=== PATIENT | male | born 1955 | race Caucasian/White ===

== ENCOUNTER 2016-11-26 10:03 | Inpatient (IN) ==
[2016-11-26] MEDS ORDERED: Potassium Chloride Elixir 20 MEQ/15 ML UDC PO SCH (11:30)
[2016-11-26 12:36] LABS: Prothrombin Time 10.7 Seconds (9.4-12.1)
[2016-11-26 12:39] LABS: Activated Partial Thrombo Time 28.4 Seconds (26.0-36.0)
[2016-11-26 12:44] LABS: BUN/Creatinine Ratio 5 (6-26); Blood Urea Nitrogen 3 mg/dL (8-26); Calcium 8.6 mg/dL (8.6-10.8); Carbon Dioxide 20 mEq/L (19-29); Chloride 99 mEq/L (98-109); Glucose 96 mg/dL (70-99); Osmolality,Calculated 266 (280-300); Potassium 3.6 mEq/L (3.5-4.5); Sodium 130 mEq/L (136-145); eGFR For African Americans > 60 (> 60); eGFR For Non-African Americans > 60 (> 60)
[2016-11-26] MEDS: traMADol 50 MG TABLET PO PRN ×2 (13:13→20:36)
--- NOTE | 2016-11-26 14:10 | Vascular/[facility] Progress Note ---
Date of Encounter: 11/26/16 Time of Encounter: 14:07 - Assessment and plan (1) Hyponatremia Current Visit: Yes Status: Acute Hyponatremia thought secondary to chronic losartan use. Asymptomatic. (2) PAD (peripheral artery disease) Current Visit: Yes Status: Chronic Recurrent occlusion of right lower extremity femoral-popliteal bypass graft. Plan thrombectomy of right lower extremity bypass graft tomorrow. (3) HTN (hypertension) Current Visit: Yes Status: Chronic Patient has been under medical therapy for hypertension for approximately 5 years. Consultation with internal medicine will be requested to review his medical therapy and to suggest alternative medications. Qualifiers: Hypertension type: essential hypertension Qualified Code(s): I10 - Essential (primary) hypertension - Subjective Interval history: Chloé Corbin is a 61-year-old white male who was admitted today in preparation for surgery tomorrow. The patient is a very long incompetent greater history in regards to his lower extremity vascular disease. He has had previous endovascular interventions as well as surgical interventions. The left side has been treated through an endovascular approach only. The right side as had bypass grafts using both vein and then synthetics as well as revisions and thrombectomies. The patient presented to my office last week with bilateral lower extremity symptoms over a number of months. An ankle-brachial index was measured at 0 bilaterally. He was then taken to the interim suite Saturday on an urgent basis for angiography. As part of his preoperative laboratory values he was found to have marked hyponatremia of less than 120 and hypokalemia of a potassium of 2.8. The patient was given both intravenous and oral potassium supplement prior to his angiogram. His electrolytes were repeated and his potassium had increased to 3.2 but his serum sodium remained low at approximately 114 values asymptomatic. He had no symptoms that would suggest typical findings of hyponatremia with cerebrovascular or neurologic events. His losartan was anticipated to be part of the problem so that was discontinued on Saturday. He is admitted today for a recheck of his electrolytes and begin intravenous normal saline. The electrolytes have been rechecked and his serum sodium is 1:30 with a potassium of 3.6 chloride of 99 and a CO2 of 20. A consultation from internal medicine be requested in regards to recommendations for long-term and it hypertensive therapy. Patient will be treated with IV normal saline overnight. Patient will go to surgery tomorrow for right lower extremity bypass graft thrombectomy. Vital Signs, Last 4 Hours Temp Pulse Resp BP Pulse Ox 11/26/16 10:42 62 11/26/16 10:30 97.7 F 79 18 163/83 100 - Physical Examination General: Present: Conversant, No Apparent Distress HEENT: Present: Atraumatic, Normocephaly Neck: Absent: JVD Cardiac: Present: Reg Rate and Rhythm, Normal S1 and S2 Lungs: Present: Normal Breath Sounds Neuro: Present: Alert and responsive, No focal deficits noted, Cranial nerves grossly intact, Motor nerves grossly intact, Sensory nerves grossly intact Vascular: Present: Pulse, absent (The right ankle pulses are not palpable but I am able to identify a Doppler signal today.), Pulse, normal (Normal dorsalis pedis and posterior tibial pulse on the left.), Color/Temperature (The left foot is warm and pink. The right foot has capillary refill but is diminished in color and temperature as compared to the left.) Abdomen: Present: Soft, Non-tender Skin: Present: No rashes noted on visualized skin Results 11/26/16 12:18 Lab Results, Last 24 hours 11/26/16 11/26/16 12:18 12:18 INR 1.0 APTT 28.4 Sodium 130 L D Potassium 3.6 Chloride 99 D Carbon Dioxide 20 BUN 3 L Creatinine 0.65 L Glucose 96 Calcium 8.6 Consult Discharge Plan - Plan Referrals: Marissa Monroe CNP [Primary Care Provider] - 12/06/16 1:00 pm Bro Lozano MD [Partnered Physician] -
[2016-11-26] MEDS: 0.9 % Sodium Chloride 1,000 ML IVC SCH (14:13)
[2016-11-26] MEDS ORDERED: *HR* LORazepam 2 MG/ML VIAL IVP PRN (17:43)
--- NOTE | 2016-11-26 18:05 | Internal Medicine Consult Note ---
Date of Encounter: 11/26/16 Time of Encounter: 18:00 Internal Medicine - CN: HPI - Data of Consult Patient: new to practice Consult date: 11/26/16 Requesting Physician: Bro Lozano MD - Consult Narrative Reason for consult: electrolyte abnormalities History of present illness: Mr. Garcia is a 61 year old male with past medical history significant for essential hypertension and peripheral arterial disease who was electively admitted to the hospital for right femoral thrombectomy. He has not been having intermittent claudication 4 weeks and 3 days ago he has had an angioplasty with stent placement into the left leg. He has tolerated the procedure well. It was noted at that Saturday his sodium was 114 and potassium 2.8. On review of his medication he was taking losartan and HCTZ. The patient says that he has been taking the same blood pressure medications for at least 4 years. These medications were stopped and he was given IV and oral potassium replacement. His electrolytes have improved however he still has hyponatremia today and potassium has significantly improved. We were consulted for management of the patient's hypertension and electrolyte abnormalities. A 10 point review of systems was negative except as above. Family history reviewed and found to be noncontributory. Social history: Patient quit smoking 2 years ago, drinks 6-8 beers a day, denies drug use. Past Med Surg Social Fam HX - Past Medical History Medical history: hypertension, peripheral artery disease Psychiatric history: no psych history - Past Surgical History Surgical History: angioplasty/stent - Social History Smoking Status: Former smoker Smokeless Tobacco Status: No Alcohol use: heavy, recent Drug use: none - Family History Mother History Unknown: Yes Internal Medicine - CN: Meds Clopidogrel Bisulfate [Plavix] 75 mg PO DAILY #30 tablet 09/02/15 [Rx] Losartan/HCTZ [Hyzaar 50-12.5 Tablet] 1 tab PO BID 01/19/16 [History] Tramadol HCl [Ultram] 50 mg PO Q6H PRN 11/23/16 [History] Allergies No Known Allergies Allergy (Verified 11/23/16 08:06) Internal Medicine - CN: Exam - Constitutional Vitals: Temp Pulse Resp BP Pulse Ox 97.9 F 72 18 128/78 98 11/26/16 16:30 11/26/16 16:30 11/26/16 16:30 11/26/16 16:30 11/26/16 16:30 General appearance IM: Present: A&O X 3 - Eye Eye exam: Present: EOMI, PERRL - Respiratory Respiratory exam: Present: CTAB. Absent: wheezes, tachypnea - Cardiovascular Cardiovascular exam IM: Present: RRR, +S1, +S2. Absent: systolic murmur - GI/Abdominal GI/Abdominal exam IM: Absent: hernia, mass, splenomegaly, tenderness - Extremities Exam Extremities exam IM: Present: warm. Absent: joint swelling, pedal edema, tenderness - Skin Skin exam IM: Absent: abrasion, cyanosis, erythema Internal Medicine - CN: Reslt - Labs CBC & Chem 7: 11/26/16 12:18 Labs: BMP 11/26/16 12:18 Sodium 130 L D Potassium 3.6 Chloride 99 D Carbon Dioxide 20 BUN 3 L Creatinine 0.65 L Glucose 96 Calcium 8.6 Per chart review patient's sodium was 117 on 11/22/2015 and it came down to 114 on 11/23/2015. His potassium was as low as 2.8. - ABG Interpretation ABG results: PT/INR, D-dimer PT 10.7 Seconds (9.4-12.1) 11/26/16 12:18 - Assessment and Plan (1) Alcohol abuse Current Visit: Yes Status: Acute Assessment and plan: We will start alcohol withdrawal protocol. We will treat the patient intravenous multivitamins. (2) Hyponatremia Current Visit: Yes Status: Acute Assessment and plan: Likely secondary to dehydration due to treatment with diuretics H as HCTZ for hypertension. Likely complicated by decreased oral intake secondary to surgery. The patient denies nausea and vomiting and dehydration. I agree with treating patient with IV normal saline. Hold HCTZ. Can restart losartan postoperatively. Monitor electrolytes closely. Losartan is not known to cause hyponatremia and is usually associated with hyperkalemia and not hypokalemia and therefore should be safe in this patient. Hyponatremia on this case could also be related to beer drinkers hyponatremia and therefore I will request a social service consult for counseling regarding except excessive alcohol and specifically beer intake. Given history of tobacco smoking SIADH enters the differential and therefore I will order a chest x-ray to rule out lung cancer and paraneoplastic syndrome. (3) HTN (hypertension) Current Visit: Yes Status: Chronic Assessment and plan: Blood pressure is well-controlled at this time. We will use IV hydralazine preoperative as needed. Restart losartan postop at 50 mg daily and labs check one week after restarting. I would hold off on beta blockers in a patient with severe peripheral vascular disease given the fact that they can aggravate PVD. Qualifiers: Hypertension type: essential hypertension Qualified Code(s): I10 - Essential (primary) hypertension (4) PAD (peripheral artery disease) Current Visit: Yes Status: Chronic Assessment and plan: Continue with Plavix. (5) Hypokalemia Current Visit: Yes Status: Acute Assessment and plan: Likely secondary to diuretic treatment. Hold HCTZ. Monitor potassium level. Replete with oral potassium chloride. Check magnesium in the morning. (6) DVT prophylaxis Current Visit: Yes Status: Acute Assessment and plan: I will defer to primary service. Consult Discharge Plan - Plan Referrals: Marissa Monroe CNP [Primary Care Provider] - 12/06/16 1:00 pm Bro Lozano MD [Partnered Physician] -
[2016-11-26] MEDS: Thiamine (B-1) 100 MG, Folic Acid 1 MG, MVI, adult with vitamin K 10 ML in 0.9 % Sodi... IV SCH (18:25)
--- NOTE | 2016-11-26 20:20 | Anesthesia Evaluation PreOp ---
Date of Encounter: 11/26/16 Time of Encounter: 20:18 - Past History Planned Operation: R fem-pop bypass/thrombectomy Cardiac History: HTN, Hyperlipidemia, Other (PAD, no cp/sob) Pulmonary History: Former smoker CHIEF YEOMAN History: Denies Any Significant HX Other Medical History: Denies Any Significant HX Anesthesia History: No Prior Anesthetic Complications, Past Anesthesia (l wrist , r fem-pop, l fem-pop) Alcohol Use: heavy, recent Drug use: none Medications and Allergies Clopidogrel Bisulfate [Plavix] 75 mg PO DAILY #30 tablet 09/02/15 [Rx] Losartan/HCTZ [Hyzaar 50-12.5 Tablet] 1 tab PO BID 01/19/16 [History] Tramadol HCl [Ultram] 50 mg PO Q6H PRN 11/23/16 [History] Allergies No Known Allergies Allergy (Verified 11/23/16 08:06) - Meds/Allergy Pre-op Review Medications Reviewed: Yes Allergies Reviewed: Yes Beta Blockers on Current Med List: No Anesthesia Results - Labs 11/26/16 12:18 Laboratory Tests 11/22/16 11/26/16 13:51 12:18 Hgb 14.2 Hct 37.6 Plt Count 176 PT 10.7 INR 1.0 APTT 28.4 - Imaging EKG: report reviewed (sr) Anesthesia Exam Vital Signs/O2 Sat/Glucose, Most Current Temp Pulse Resp BP Pulse Ox 11/26/16 16:30 97.9 F 72 18 128/78 98 Height: 1.78 Weight: 72 NPO (# of Hours): >8 - HEENT Pupil (Motor): Pupils equal, EOMI Mallampati: II Teeth: Edentulous, Poor dentition Oral Opening: Greater than 3 - CHIEF YEOMAN LOC: Oriented CHIEF YEOMAN Motor: Normal RUE, Normal LUE, Normal RLE, Normal LLE, Normal Face CHIEF YEOMAN Sensory: Normal: RUE, LUE, RLE, LLE, Face - Cardiac Rhythm: Regular Murmur: None - Pulmonary Breath Sounds: bilateral Clear Respiratory Effort: Symmetrical Anesthesia Assess/Plan ASA Score: 4 Modified Sharon Scale for Level of Consciousness: Cooperative, oriented, and tranquil Anesthetic Plan: General Autologous Blood: Yes Monitoring Plan: Standard Monitors, A-Line Recovery Plan: PACU
[2016-11-27] MEDS ORDERED: ceFAZolin 2,000 MG in D5% in Water 100 ML IVPB ONE ×2 (00:01→07:00)
[2016-11-27] MEDS: 0.9 % Sodium Chloride 1,000 ML IVC SCH ×2 (00:13→09:41)
[2016-11-27] MEDS: Thiamine (B-1) 100 MG, Folic Acid 1 MG, MVI, adult with vitamin K 10 ML in 0.9 % Sodi... IV SCH (09:42)
[2016-11-27] MEDS ORDERED: Lidocaine -MPF 2% 2 ML VIAL ONE (11:24)
[2016-11-27] MEDS ORDERED: *HR* FentaNYL (PF) 100 MCG/2 ML VIAL ONE (11:25)
[2016-11-27] MEDS ORDERED: *HR* Propofol 200 MG/20 ML VIAL IVP ONE (11:25)
[2016-11-27] MEDS ORDERED: *HR* Succinylcholine 200 MG/10 ML VIAL IVP ONE (11:27)
[2016-11-27] MEDS ORDERED: Heparin 1,000 UNITS/500 mL NS 500 ML ONE ×2 (11:44→13:11)
[2016-11-27] MEDS ORDERED: *HR* Midazolam HCl 5 MG/5 ML VIAL IVP ONE (12:40)
--- NOTE | 2016-11-27 13:48 | Operative Note ---
Date of procedure: 11/27/16 Pre-op diagnosis: ischemic right leg/rethrombosis of right fem-pop bypass graft Post-op diagnosis: same Procedure: thrombectomy of right fem-pop bypass graft Complications: none Anesthesia: EAST[facility] Surgeon: Bro Lozano Estimated blood loss (cc): 300 Specimen: none Condition: stable Disposition: PACU Procedure in Detail: History Maximino nascimento is a 61-year-old white male with a long and complicated history of vascular occlusive disease. He has undergone multiple procedures for the right lower extremity including a previous femoral-popliteal bypass graft with vein. A right femoral popliteal bypass graft with PTFE. Thrombectomy of the bypass graft. And left lower extremity endovascular intervention. The patient presented to my office last week with ankle-brachial index of 0 bilaterally. He then underwent angiography last Saturday. This demonstrated occlusion again of the right lower extremity bypass graft in left superficial femoral artery occlusion. The left superficial femoral artery lesion was able to be successfully treated endovascularly with balloon angioplasty and a single stent angioplasty. The patient had restitution of a left ankle pulse and a warm left foot. He now comes to the operating room today in an attempt to try to thrombectomize his right lower extremity bypass graft. On questioning the patient he states that the symptoms have been ongoing for about 6 months but he has not sought medical attention until his appointment last week. Procedure After informed consent was obtained the patient was taken to the operating room. General endotracheal anesthesia was established. The left lower extremity was sterilely prepped and draped. A timeout protocol was observed. The below- knee popliteal incision was then opened. Dissection was carried through very dense and thick scar tissue. The PTFE graft was encased in a very formidable scar. After this was carefully dissected with preservation of the underlying deep venous system controls obtained of the graft. Heparin was administered in a dose of 5000 units intravenously. After 3 minutes only a transverse graftotomy was made near the distal anastomosis. There was no blood or clot at this level of the graft. A 4 Martin[place] Ana catheter was then passed distally into to the right leg to the level of the ankle. There was no clot retrieved but the patient then demonstrated retrograde bleeding. This was flushed with heparinized saline and attention was turned proximally. An adherent clot thrombectomy catheter was then passed retrograde into the graft. A moderate amount of fibrous material was removed and restitution of pulsatile flow was achieved. The graft was then back flushed with heparinized saline. The graftotomy was closed with a running 6-0 Prolene suture. After appropriate backbleeding and flushing the graft was opened. The patient demonstrated no hemodynamic distress. Biphasic signals were identified at the posterior tibial and her cells pedis arteries at the ankle. The wound was then irrigated and hemostasis achieved. Wound was closed in layers using absorbable suture. A dry sterile dressing was applied. The patient was taken from the operating room to the recovery room stable condition. The patient was extubated in the operating room. There were no intraoperative complications.
[2016-11-27] MEDS ORDERED: EPHEDrine 50 MG/ML VIAL ONE (13:51)
[2016-11-27] MEDS ORDERED: *HR* HYDROmorphone (PF) 1 MG/ML SYRINGE IVP PRN (14:09)
[2016-11-27] MEDS ORDERED: *HR* HYDROmorphone 2 MG/ML SYRINGE ONE (14:29)
[2016-11-27] MEDS ORDERED: Dexamethasone 4 MG/ML VIAL ONE (14:34)
[2016-11-27] MEDS ORDERED: Ondansetron 4 MG/2 ML VIAL ONE (14:34)
[2016-11-27] MEDS ORDERED: *HR* Heparin 5,000 UNIT/ML VIAL ONE (15:54)
--- NOTE | 2016-11-27 17:26 | Anesthesia Evaluation Post Op ---
Date of Encounter: 11/27/15 Time of Encounter: 17:25 - Vital Signs Vital Signs: vss - Lungs Lungs: Clear Ascult./Percussion - Airway Airway: Non-obstructed - Cardiovascular Regular Rate, Baseline Rhythm - Mental Status Mental Status: Alert & Oriented, Answers Appropriately - Pain Pain Scale: 0 Pain Scale used: Numeric (1 - 10) - Nausea Vomiting Nausea Vomiting: Not Present - Hydration Hydration: Tolerates oral liquids - Discharge PostOp Status: Transfer Patient to floor
[2016-11-27] MEDS ORDERED: Ondansetron 4 MG/2 ML VIAL IVP PRN (17:40)
[2016-11-27] MEDS ORDERED: Naloxone 0.4 MG/ML INJ IVP PRN (17:40)
[2016-11-27] MEDS ORDERED: *HR* Morphine 2 MG/ML SYRINGE IVP PRN (17:40)
[2016-11-27] MEDS ORDERED: traMADol 50 MG TABLET PO PRN (17:40)
[2016-11-27] MEDS: *HR* Morphine 2 MG/ML SYRINGE IVP PRN (17:50)
--- NOTE | 2016-11-27 19:26 | Internal Med Progress Note ---
Date of Encounter: 11/27/16 Time of Encounter: 12:30 - Assessment and plan (1) Hypokalemia Current Visit: Yes Status: Acute Assessment and plan: Possibly to hydrochlorothiazide, which was discontinued. Potassium levels improved with replenishment. Monitor potassium levels (2) Hyponatremia Current Visit: Yes Status: Acute Assessment and plan: Possibly due to combination of hydrochlorthiazide and alcohol abuse. HCTZ discontinued and sodium level improved significantly. Monitor (3) HTN (hypertension) Current Visit: Yes Status: Chronic Assessment and plan: Blood pressure is stable. Agree with the plan by Dr. De Guzman, to resume losartan for discharge. Please discontinue hydrochlorothiazide and is in discharge time. His potassium level may need to be monitored by the PCP after discharge. Qualifiers: Hypertension type: essential hypertension Qualified Code(s): I10 - Essential (primary) hypertension (4) PAD (peripheral artery disease) Current Visit: Yes Status: Chronic Assessment and plan: Expected to go for peripheral angio today. Vascular surgery is following the pt - Subjective Interval history: Pt is seen and examined at the bedside and chart reviewed. Pt reports feeling better. Denies significant pain, nausea, vomiting, fever, chills. he is awaiting vascular surgery procedure this afternoon - Constitutional Vitals: Temp Pulse Resp BP Pulse Ox 97.1 F L 77 14 133/68 98 11/27/16 17:42 11/27/16 18:22 11/27/16 18:22 11/27/16 18:22 11/27/16 18:22 General appearance: Present: A&O X 3 Exam: General: Not in acute distress at the time of my evaluation Lungs: Clear to auscultation Cardiac: Regular rate and rhythm. No significant murmurs Abdomen: Soft, non tender. Bowel sounds present Neurological: Alert and oriented. No gross localizing deficits Psych: Not aggressive or agitated Extremities: no significant leg edema Skin: No generalized rash Internal Medicine: Result - Labs CBC & Chem 7: 11/26/16 12:18 - ABG Interpretation ABG results: PT/INR, D-dimer PT 10.7 Seconds (9.4-12.1) 11/26/16 12:18 - Impressions Impressions Chest X-Ray 11/26/16 22:02 IMPRESSION: Patchy bibasilar airspace disease. D/ / Javier Berg MD / Javier Berg MD Interpreting Provider: Javier Berg MD - VTE Documentation of Mechanical Device: Intermittent pneumatic compression device Consult Discharge Plan - Plan Referrals: Marissa Monroe CNP [Primary Care Provider] - 12/06/16 1:00 pm Bro Lozano MD [Partnered Physician] - 12/19/16 9:45 am
[2016-11-27] MEDS: *HR* HYDROcodone/Acet 5/325 mg TABLET PO PRN (19:46)
[2016-11-28] MEDS: *HR* Morphine 2 MG/ML SYRINGE IVP PRN (00:11)
[2016-11-28] MEDS: ceFAZolin 2,000 MG in D5% in Water 100 ML IVPB SCH ×2 (00:12→08:33)
[2016-11-28] MEDS: *HR* HYDROcodone/Acet 5/325 mg TABLET PO PRN ×3 (02:05→14:37)
[2016-11-28 04:42] LABS: Basophils % 0.4 %; Eosinophils % 0.4 %; Immature Granulocytes % 1.1 % (0-4); Lymphocytes # 0.8 K/mcL (0.6-4.6); Lymphocytes % 11.6 %; Mean Corpuscular HGB Conc 34.6 g/dL (31.6-35.5); Mean Corpuscular Hemoglobin 32.8 pg (28.0-33.3); Mean Corpuscular Volume 94.9 fL (83.0-100.0); Mean Platelet Volume 8.9 fL (9.4-12.4); Monocytes # 0.9 K/mcL (0.0-1.3); Monocytes % 12.6 %; Neutrophils # 5.3 K/mcL (1.6-8.9); Platelet Count 146 K/mcL (140-400); Red Blood Count 2.74 M/mcL (4.19-5.50); Red Cell Distribution Width 11.8 % (11.5-14.5); Segmented Neutrophils % 73.9 %
[2016-11-28 04:59] LABS: BUN/Creatinine Ratio 7 (6-26); Calcium 7.9 mg/dL (8.6-10.8); Carbon Dioxide 20 mEq/L (19-29); Chloride 101 mEq/L (98-109); Glucose 113 mg/dL (70-99); Osmolality,Calculated 270 (280-300); Potassium 4.2 mEq/L (3.5-4.5); Sodium 131 mEq/L (136-145); eGFR For African Americans > 60 (> 60); eGFR For Non-African Americans > 60 (> 60)
[2016-11-28 05:00] LABS: Blood Urea Nitrogen 5 mg/dL (8-26)
[2016-11-28 16:12] VITALS: BP 124/78
--- NOTE | 2016-11-28 17:15 | Discharge Summary ---
Date of Encounter: 11/28/16 Time of Encounter: 17:12 - Discharge Diagnosis (1) Hyponatremia Priority: Primary Status: Acute Comments: Improved with cessation of hydrochlorothiazide and normal saline IV supplement. (2) PAD (peripheral artery disease) Priority: Primary Status: Chronic Comments: Ischemia resolve with successful thrombectomy of right femoral popliteal bypass graft (3) HTN (hypertension) Priority: Secondary Status: Chronic Comments: Controlled with present medication. On discharge patient will be placed on losartan and the hydrochlorothiazide will be discontinued. Qualifiers: Hypertension type: essential hypertension Qualified Code(s): I10 - Essential (primary) hypertension - Discharge Medications Prescriptions: HYDROcodone/Acet 5/325 mg [[place] 5-325 mg] 1 tab PO Q6HR PRN #14 tablet PRN Reason: Moderate Pain Losartan [Cozaar] 25 mg PO DAILY #30 tablet Warfarin [Coumadin] 2.5 mg PO 1800 #30 tablet Home Medications: Clopidogrel Bisulfate [Plavix] 75 mg PO DAILY #30 tablet 09/02/15 [Rx] Tramadol HCl [Ultram] 50 mg PO Q6H PRN 11/23/16 [History] HYDROcodone/Acet 5/325 mg [[place] 5-325 mg] 1 tab PO Q6HR PRN #14 tablet [Rx] Losartan [Cozaar] 25 mg PO DAILY #30 tablet 11/28/16 [Rx] Warfarin [Coumadin] 2.5 mg PO 1800 #30 tablet 11/28/16 [Rx] Allergies/Adverse Reactions: Allergies No Known Allergies Allergy (Verified 11/23/16 08:06) - Notes to Outpatient Provider Patient will be started empirically on Coumadin 2.5 mg daily. This is given in order to preserve and prolonged patency of his right lower extremity synthetic bypass graft. The patient will be instructed to have an INR checked on this upcoming Saturday. Because of his hyponatremia and hypokalemia the hydrochlorothiazide was discontinued. Date of admission: 11/26/16 10:41 Primary care physician: Marissa Monroe CNP Consults: Internal medicine Procedure(s) Performed: Redo thrombectomy of right femoral popliteal bypass graft Discharging clinician: Bro Lozano Anticipated date of discharge: 11/28/16 - Patient Status Disposition: Home, Self-Care Condition: Good Functional capacity at discharge: independent ambulation Overall status at discharge: patient is progressing back to baseline - Discharge Instructions Instructions: Peripheral Vascular Disorders (DC), Chronic Hypertension (DC) Follow Up With: Marissa Monroe CNP [Primary Care Provider] - 12/06/16 1:00 pm Bro Lozano MD [Partnered Physician] - 12/19/16 9:45 am Additional Instructions: Remove right calf dressing on Saturday. Keep right thigh incision dry for total 5 days following surgery. Elevate right lower extremity when patient is not ambulating. Patient may ambulate and use stairs when necessary. No lifting greater than 10 pounds. No automobile driving. Begin Coumadin therapy at 2.5 mg daily. Patient is to have INR checked on this upcoming Saturday. Results to go to his primary care provider. Follow-up with Dr. Lozano in 2 weeks. - Diet and Activity Activity: increase activity as tolerated Diet: low fat, low cholesterol - Hospital Course Hospital course: Mr. Garcia is a 61 year old male With a long and, get history of lower extremity vascular disease. He had presented to the office last week with bilateral ankle-brachial index of 0. He underwent angiogram and left lower extremity endovascular intervention last Saturday for the left lower extremity. This was successful. He now comes to the operating room on Saturday for the right lower extremity. Rethrombosis of his right femoral-popliteal bypass graft. He was admitted on Saturday because of his hyponatremia. Internal medicine was consulted and his medications were adjusted as well as an intravenous normal saline drip. The patient underwent successful thrombectomy of his bypass graft. Patient was able to ambulate independently on postoperative day #1. Instructions were given to the patient regards his diet and medications and wound care. He will be prescribed Coumadin therapy in order to preserve the patency of the synthetic below the knee bypass graft. The losartan will be converted to losartan only with no addition of the hydrochlorothiazide. - Time Spent with Patient Total time spent providing and/or coordinating discharge services: Exam Vital Signs, Last 4 Hours Temp Pulse Resp BP Pulse Ox 11/28/16 16:18 69 11/28/16 16:11 98.6 F 69 16 124/78 99 General: Present: Conversant, No Apparent Distress HEENT: Present: Atraumatic Neck: Absent: JVD Cardiac: Present: Reg Rate and Rhythm Neuro: Present: Alert and responsive, No focal deficits noted, Cranial nerves grossly intact Abdomen: Present: Soft, Non-tender Vascular: Present: Normal capillary refill, Color/Temperature (Right foot is warm and pink.), Surgical incisions (Surgical incision shows small amount of drainage. The right calf is warm. Excellent Doppler signals were identified over the dorsalis pedis posterior tibial artery as well as the vessels between the webspace of the toes on the right foot.) Skin: Present: No rashes noted on visualized skin. Absent: Wound/ulcer(s) - VTE Documentation of Mechanical Device: Intermittent pneumatic compression device
--- NOTE | 2016-11-28 21:36 | Internal Med Progress Note ---
Date of Encounter: 11/28/16 Time of Encounter: 13:30 - Assessment and plan (1) Hypokalemia Status: Acute Assessment and plan: Possibly to hydrochlorothiazide, which was discontinued. Potassium levels improved with replenishment. Monitor potassium levels (2) Hyponatremia Status: Acute Assessment and plan: Possibly due to combination of hydrochlorthiazide and alcohol abuse. HCTZ discontinued and sodium level improved significantly. Monitor (3) HTN (hypertension) Status: Chronic Assessment and plan: Blood pressure is stable. Agree with the plan by Dr. De Guzman, to resume losartan for discharge. Please discontinue hydrochlorothiazide and is in discharge time. His potassium level may need to be monitored by the PCP after discharge. Qualifiers: Hypertension type: essential hypertension Qualified Code(s): I10 - Essential (primary) hypertension (4) PAD (peripheral artery disease) Status: Chronic Assessment and plan: s/p right fem-pop bypass graft thrombectomy. Management per Vascular surgery. - Subjective Interval history: Pt is seen and examined at the bedside and chart reviewed. Pt reports feeling better. Denies significant pain, nausea, vomiting, fever, chills. - Constitutional Vitals: Temp Pulse Resp BP Pulse Ox 98.6 F 69 16 124/78 99 11/28/16 16:11 11/28/16 16:18 11/28/16 16:11 11/28/16 16:11 11/28/16 16:11 General appearance: Present: A&O X 3 Exam: General: Not in acute distress at the time of my evaluation Lungs: Clear to auscultation Cardiac: Regular rate and rhythm. No significant murmurs Abdomen: Soft, non tender. Bowel sounds present Neurological: Alert and oriented. No gross localizing deficits Psych: Not agrressive or agitated Extremities: no significant leg edema Skin: No generalized rash Internal Medicine: Result - Labs CBC & Chem 7: 11/28/16 04:26 11/28/16 04:26 Labs: Short CBC 11/28/16 Range/Units 04:26 WBC 7.1 (4.3-11.1) K/mcL Hgb 9.0 L D (12.9-16.9) g/dL Hct 26.0 L (37.5-50.1) % Plt Count 146 (140-400) K/mcL Neutrophils # 5.3 (1.6-8.9) K/mcL BMP 11/28/16 04:26 Sodium 131 L Potassium 4.2 Chloride 101 Carbon Dioxide 20 BUN 5 L Creatinine 0.67 L Glucose 113 H Calcium 7.9 L - ABG Interpretation ABG results: PT/INR, D-dimer PT 10.7 Seconds (9.4-12.1) 11/26/16 12:18 - VTE Documentation of Mechanical Device: Intermittent pneumatic compression device Consult Discharge Plan - Plan Instructions: Hydrocodone/Acetaminophen (By mouth), Warfarin (By mouth), Losartan (By mouth), Peripheral Vascular Disorders (DC), Chronic Hypertension ( DC), Vitamin K in Foods (DC) Additional Instructions: Remove right calf dressing on Saturday. Keep right thigh incision dry for total 5 days following surgery. Elevate right lower extremity when patient is not ambulating. Patient may ambulate and use stairs when necessary. No lifting greater than 10 pounds. No automobile driving. Begin Coumadin therapy at 2.5 mg daily. Patient is to have INR checked on this upcoming Saturday. Results to go to his primary care provider. Follow-up with Dr. Lozano in 2 weeks. Referrals: Marissa Monroe CNP [Primary Care Provider] - 12/06/16 1:00 pm Bro Lozano MD [Partnered Physician] - 12/19/16 9:45 am Prescriptions: HYDROcodone/Acet 5/325 mg [[place] 5-325 mg] 1 tab PO Q6HR PRN #14 tablet PRN Reason: Moderate Pain Losartan [Cozaar] 25 mg PO DAILY #30 tablet Warfarin [Coumadin] 2.5 mg PO 1800 #30 tablet
== END 2016-11-28 18:20 | disposition home or self-care (01) | DRG 253 ==
LOC: SAMDAY 10:03 → 2NNU 10:41
PROVIDERS: ADMIT Surgery Vascular Surgery; ATTEND Surgery Vascular Surgery

== ENCOUNTER 2017-10-15 11:38 | Inpatient (IN) ==
--- NOTE | 2017-10-15 07:17 | Anesthesia Evaluation PreOp ---
Date of Encounter: 10/15/17 Time of Encounter: 12:30 - Past History Planned Operation: redo right fem-pop/thrombrctomy Cardiac History: HTN, Hyperlipidemia, Other (PAD) Pulmonary History: Former smoker RELASTER History: Denies Any Significant HX Other Medical History: Denies Any Significant HX Anesthesia History: No Prior Anesthetic Complications, Past Anesthesia ( bilateral fem-pop, left wrist) Alcohol Use: heavy, recent Drug use: none Medications and Allergies Clopidogrel Bisulfate [Plavix] 75 mg PO DAILY #30 tablet 09/02/15 [Rx] Lisinopril [Zestril] 40 mg PO DAILY 10/15/17 [History] Warfarin [Coumadin] 2.5 mg PO BID 10/15/17 [History] 3 Allergy/AdvReac Type Severity Reaction Status Date / Time No Known Allergies Allergy Verified 10/15/17 12:24 - Meds/Allergy Pre-op Review Medications Reviewed: Yes Allergies Reviewed: Yes Beta Blockers on Current Med List: No Anesthesia Results - Labs Laboratory Tests 10/09/17 10/09/17 10/09/17 11:31 11:31 11:31 Hgb 13.7 Hct 41.1 Plt Count 317 PT 33.4 H INR 3.0 APTT 45.6 H Sodium 137 Potassium 4.0 BUN 4 L Creatinine 0.72 - Imaging EKG: report reviewed (Sinus rhythm) Anesthesia Exam - HEENT Pupil (Motor): EOMI Mallampati: II Teeth: Edentulous, Poor dentition Oral Opening: Greater than 3 - RELASTER LOC: Oriented RELASTER Motor: Normal RUE, Normal LUE, Normal RLE, Normal LLE, Normal Face RELASTER Sensory: Normal: RUE, LUE, RLE, LLE, Face - Cardiac Rhythm: Regular Murmur: None - Pulmonary Breath Sounds: bilateral Clear Respiratory Effort: Symmetrical Anesthesia Assess/Plan ASA Score: 3 Modified [place] Scale for Level of Consciousness: Cooperative, oriented, and tranquil Anesthetic Plan: General Monitoring Plan: Standard Monitors, A-Line Recovery Plan: PACU (discussed risks of GA, mila and possible blood. Agrees to proceed)
[2017-10-15] MEDS ORDERED: *HR* Propofol 200 MG/20 ML VIAL IVP ONE (11:43)
[2017-10-15] MEDS ORDERED: Lidocaine -MPF 2% 2 ML VIAL ONE (11:46)
[2017-10-15] MEDS ORDERED: *HR* Succinylcholine 200 MG/10 ML VIAL IVP ONE (11:51)
[2017-10-15] MEDS ORDERED: Lidocaine -MPF 1% 2 ML VIAL ID ONE (11:54)
[2017-10-15] MEDS ORDERED: CeFAZolin Syr 2,000MG/20 ML 2,000 MG/20 ML SYRINGE IVPB ONE (11:54)
[2017-10-15] MEDS ORDERED: Ringers Solution, Lactated 1,000 ML IVC SCH (12:00)
[2017-10-15] MEDS ORDERED: Albuterol 2.5 MG/3 ML NEBULIZER IH ONE ×2 (12:03→21:34)
[2017-10-15 12:04] LABS: INR 1.1; Prothrombin Time 11.8 Seconds (9.4-12.1)
[2017-10-15 12:07] LABS: Activated Partial Thrombo Time 30.7 Seconds (26.0-36.0)
--- NOTE | 2017-10-15 12:31 | History & Physical Report ---
Date of Encounter: 10/15/17 Time of Encounter: 12:30 24 Hour HP Update - Instructions Instructions: If the History and Physical is less than 30 days old and was completed prior to A.M. admission and or procedure and has NOT been updated on calendar day of procedure please complete this update prior to performing procedure. - Update Patient reports changes in Medical Condition: No Changes in examination, assessment, or condition: No Changes in Medication: No Preop tests/diagnostics Reviewed: Yes Pre-Op MRSA Screen: Negative Surgery Remains Indicated: Yes Consent for Planned Operative Procedure(s) Verified: Yes - Pre-Operative Checklist Preoperative Checklist Indicated: Yes Prophylactic Antibiotic Ordered: Yes Home Medications Include Beta Yadira: No Beta Yadira Taken Today (Day of Surgery): No Beta Yadira Taken Yesterday (Day Prior to Surgery): No Is VTE Prophylaxis Indicated?: Yes
[2017-10-15] MEDS ORDERED: Heparin 1,000 UNITS/500 mL NS 2,000 ML ONE (12:42)
[2017-10-15] MEDS ORDERED: *HR* Midazolam HCl 2 MG/2 ML VIAL ONE (12:54)
[2017-10-15] MEDS ORDERED: *HR* FentaNYL (PF) 100 MCG/2 ML VIAL ONE ×3 (13:00→18:58)
[2017-10-15] MEDS ORDERED: EPHEDrine 50 MG/ML VIAL ONE ×2 (13:01→19:33)
[2017-10-15] MEDS ORDERED: *HR* Promethazine 25 MG/ML VIAL IVP PRN ×2 (14:24→21:34)
[2017-10-15] MEDS ORDERED: *HR* Labetalol 20 MG/4 ML SYRINGE IVP PRN ×2 (14:24→21:34)
[2017-10-15] MEDS ORDERED: Ondansetron 4 MG/2 ML VIAL IVP ONE (21:34)
[2017-10-15] MEDS ORDERED: *HR* HYDROmorphone (PF) 1 MG/ML SYRINGE IVP PRN (21:34)
--- NOTE | 2017-10-15 21:58 | Operative Note ---
Date of procedure: 10/15/17 Pre-op diagnosis: limb threatening ischemia of right lower extremity-recurrent graft occlusio Post-op diagnosis: same Procedure: redo right femoral BK popliteal bypass graft thrombectomy right BK pop endarterectomy with bovine pericardial patch angioplasty right Tibio Peroneal Trunk endarterectomy with bovine patch angioplasty Complications: none Anesthesia: EASTONA Surgeon: Bro Lozano Estimated blood loss (cc): 600 Specimen: none Condition: stable Disposition: PACU Procedure in Detail: History Maximino Garcia is a 62-year-old white male who has a long history of peripheral vascular occlusive disease. He has undergone multiple interventions and surgery for revascularization. He states that about 2-3 months ago he developed recurrent symptoms in the right lower extremity was seen at the [facility] in [place] and noninvasive studies were performed. This confirmed a limb threatening ischemia with an ankle-brachial index of only 0.33 on the right and 0.77 on the left. Patient came back to my clinic and we discussed these options. I recommended that we try one last attempt at revascularization for the right lower extremity and the patient now comes for this procedure today. Procedure After informed consent was obtained the patient was taken the operating room. General endotracheal anesthesia was established under arterial line pressure monitoring. The right lower extremity was sterilely prepped and draped. A timeout protocol was observed. The initial incision was at the right groin through the previous groin incision site. The patient has had 4 previous operations. Dissection was carried down to identify the proximal aspect of the femoral popliteal bypass graft which is a PTFE graft. Dissection was also made of surrounding tissue to be able to control proximally and distally in the kasaan vessel. The patient excellent pulse in the kasaan vessel proximal to the graft but there is no palpable pulse or Doppler signal in the graft as expected. This dissection was rather tedious due to the marked scar tissue formation. Attention was then directed to the runoff vessel. The taehd-hfg-[id number] popliteal incision was reopened. Dissection was carried down to the graft. The amount of inflammation and scar tissue here was much worse than even that seen in the groin. This led to a very long and tedious dissection. Eventually the distal anastomosis was identified and the graft controlled. 5000 of heparin were given intravenously. A transverse graftotomy was made over the foot proximally in an attempt to clarify and to clean out the graft for appropriate inflow. A large amount of chronic material was removed. This included areas indicative of chronic clot and intimal hyperplasia. A 4 [place] Ana catheter was passed through the graft. This traveled to the area of the knee would not pass distally. A large amount of chronic material was removed. The inflow from the iliac system was excellent. The khanna of the graft over the low the knee popliteal artery was then opened. Chronic material was found here. The graft was thrombectomized using the 4 [place]an 40 catheter going retrograde. As and flushed. Attempts at passing a 3 [place] Ana catheter distally were unsuccessful area to the umrnx-nml-efdw popliteal artery was also rigid and obviously filled with atherosclerotic material. Therefore it was decided to proceed with an endarterectomy and patch of the tkjuk-oit-ixyr popliteal bleeding that this was part of the reason for his graft failure. A longitudinal arteriotomy was made in the hwqoy-xxh-arwx popliteal artery distal to the area of the distal anastomosis. A very thick dense calcific plaque was removed from this area. An endarterectomy was performed and the bed of the vessel was inspected for any residual debris. A bovine pericardial patch angioplasty was then performed. With this done the proximal graftotomy and the distal graftotomy were closed. After appropriate backbleeding and flushing the graft was opened. I was disappointed with the flow through the graft. I also was not satisfied with the perfusion distally as this appeared to be a very flattened monophasic signal and I can identify no signals at the ankle. Therefore I rechecked the graft. I opened the graft in the groin and passed a Ana catheter proximally and distally. It appeared that there were some residual compression of the proximal vessel due to the clamps applied and so this was opened using a 4 [place] and 5 [place]an Ana catheter with cheondoism of excellent pulsatile flow. This was then closed but the flow distally was still unsatisfactory. Therefore I explored the tibial peroneal trunk and needed to extend the incision. The exposure for the tibial peroneal trunk was extremely difficult due to the overlying and crossing veins and his particular anatomic configuration did not allow for easy access and the scarring more proximally inhibited free movement. The veins and arteries were adhesed together creating a anatomically challenging situation and increasing the blood loss encountered due to the small crossing veins. It was necessary to ligate some of the branches of the anterior tibial venous system in order to free up the arteries enough so that the vleup-vqk-knne area could be freely mobilized and the tibial peroneal trunk could be addressed. An arteriotomy was made on the tibial peroneal trunk. Small amount of debris was present. A Ana catheter was passed retrograde and excellent pulsatile flow was achieved after removal of further debris and atherosclerotic material. Patch angioplasty was then performed. After appropriate backbleeding and flushing the graft was opened. The patient had excellent pulsation through the graft and into the tibial peroneal trunk and proximal suture tibial and peroneal arteries. The waveforms however were monophasic and appeared blunted suggesting a very high resistant system. It was known that the patient has diffuse tibial artery disease with very poor distal runoff. It was thought that this also explained the fact that on the table I could not identify an arterial signal at the ankle. As I had exhausted all potential therapeutic endeavors and he had no distal vessel suitable for distal bypass grafting or vein available I elected to close the wounds after achieving hemostasis. The patient was extubated in the operating room. Taken to the recovery room in stable condition. The foot was wrapped in warm blankets. The estimated blood loss was 600 mL's due to the extreme length of the surgery and the multiple dissections and flushings that were necessary in an attempt to try to salvage this right lower extremity.
[2017-10-15] MEDS: *HR* HYDROmorphone (PF) 1 MG/ML SYRINGE IVP PRN ×2 (22:46→23:04)
--- NOTE | 2017-10-15 23:37 | Anesthesia Evaluation Post Op ---
Date of Encounter: 10/15/17 Time of Encounter: 23:36 - Vital Signs Vital Signs: Vital Signs/O2 Sat, Most Current Temp Pulse Resp BP Pulse Ox 97.2 F L 68 18 110/64 96 10/15/17 23:27 10/15/17 23:27 10/15/17 23:27 10/15/17 23:27 10/15/17 23:27 - Lungs Lungs: Clear Ascult./Percussion - Airway Airway: Non-obstructed - Cardiovascular Regular Rate - Mental Status Mental Status: Alert & Oriented, Answers Appropriately - Pain Pain Scale: 0 Pain Scale used: Numeric (1 - 10) - Nausea Vomiting Nausea Vomiting: Not Present - Hydration Hydration: NPO, Walker catheter - Discharge PostOp Status: Transfer Patient to floor
[2017-10-16] MEDS ORDERED: Acetaminophen 325 MG TABLET PO PRN (00:10)
[2017-10-16] MEDS ORDERED: Ondansetron 4 MG/2 ML VIAL IVP PRN (00:10)
[2017-10-16] MEDS ORDERED: *HR* Labetalol 20 MG/4 ML SYRINGE IVP PRN (00:10)
[2017-10-16] MEDS ORDERED: Naloxone 0.4 MG/ML INJ IVP PRN (00:10)
[2017-10-16] MEDS: CeFAZolin Premix DUPLEX 2,000 MG/50 ML BAG IVPB SCH ×3 (01:11→16:23)
[2017-10-16] MEDS: *HR* Morphine 2 MG/ML SYRINGE IVP PRN ×4 (03:21→19:28)
[2017-10-16 05:14] LABS: Basophils % 0.3 %; Eosinophils # 0.1 K/mcL (0.0-0.6); Eosinophils % 0.9 %; Hematocrit 26.3 % (37.5-50.1); Hemoglobin 8.6 g/dL (12.9-16.9); Immature Granulocytes % 0.4 % (0-4); Lymphocytes % 9.8 %; Mean Corpuscular HGB Conc 32.7 g/dL (31.6-35.5); Mean Corpuscular Hemoglobin 29.6 pg (28.0-33.3); Mean Corpuscular Volume 90.4 fL (83.0-100.0); Mean Platelet Volume 9.8 fL (9.4-12.4); Monocytes % 9.7 %; Neutrophils # 8.3 K/mcL (1.6-8.9); Platelet Count 196 K/mcL (140-400); Red Blood Count 2.91 M/mcL (4.19-5.50); Red Cell Distribution Width 13.7 % (11.5-14.5); Segmented Neutrophils % 78.9 %
[2017-10-16 05:37] LABS: BUN/Creatinine Ratio 7 (6-26); Calcium 7.8 mg/dL (8.6-10.8); Carbon Dioxide 24 mEq/L (19-29); Chloride 107 mEq/L (98-109); Glucose 114 mg/dL (70-99); Osmolality,Calculated 282 (280-300); Sodium 137 mEq/L (136-145); eGFR For African Americans > 60 (> 60); eGFR For Non-African Americans > 60 (> 60)
[2017-10-16 05:43] LABS: Blood Urea Nitrogen 5 mg/dL (8-26)
[2017-10-16] MEDS: Lisinopril 20 MG TABLET PO SCH (08:01)
[2017-10-16] MEDS ORDERED: Lidocaine Viscous Oral Soln 15 ML SOLUTION MM PRN (08:34)
[2017-10-16] MEDS ORDERED: 0.9 % Sodium Chloride 250 ML ONE (10:06)
[2017-10-16] MEDS: *HR* HYDROcodone/Acet 5/325 mg TABLET PO PRN ×2 (10:35→23:22)
[2017-10-16] MEDS ORDERED: *HR* Warfarin 5 MG TABLET PO ONE ×2 (13:27→18:00)
[2017-10-16 17:45] LABS: VBG Ionized Calcium 1.18 mmol/L (1.15-1.35); VBG PH 7.36 pH Units (7.32-7.42)
--- NOTE | 2017-10-16 18:07 | Vascular/[facility] Progress Note ---
Date of Encounter: 10/16/17 Time of Encounter: 18:05 - Assessment and plan (1) Acute blood loss anemia Current Visit: Yes Status: Acute Patient had hemoglobin approximately 8.5 with hypotension. Due to the need to optimize hemodynamics and improved groove perfusion to a very ischemic right lower extremity 1 unit of blood was transfused. (2) PAD (peripheral artery disease) Current Visit: No Status: Chronic Patient has severe ischemia to the right lower extremity. Despite a redo thrombectomy of the right femoral-popliteal bypass graft and endarterectomies with patch angioplasties of the [id number]-rax-zgxz popliteal and tibial peroneal trunk the patient's perfusion remains marginal at best. The patient will be restarted on his Coumadin. Overall prognosis for the right lower extremity remains very poor. - Subjective Interval history: Mr. Garcia is a 62-year-old white male who had undergone an extensive attempt at revascularization of the right lower extremity yesterday. He was noted overnight to have some degree of hypotension with systolics in the mid 80s which is unusual for him. In addition he had some arrhythmias with bigeminy and a short run of V. tach this afternoon. He was asymptomatic from this process. In addition he complains of headache pain, throat pain, and pain in his right lower extremity along the incision line. He also notes decreased sensation in his right foot area Vital Signs, Last 4 Hours Temp Pulse Resp BP Pulse Ox 10/16/17 15:05 98.6 F 72 14 96/60 100 - Physical Examination General: Present: Conversant, No Apparent Distress HEENT: Present: Atraumatic, Normocephaly Neck: Absent: JVD Lungs: Present: Normal Breath Sounds Neuro: Present: Alert and responsive, No focal deficits noted, Cranial nerves grossly intact, Motor nerves grossly intact, Sensory nerves grossly intact Vascular: Present: Pulse, absent (I been able to intermittently Doppler a signal over the right posterior tibial artery during the day. The patient is also had intermittent changes in the color and temperature of the right foot.), Surgical incisions (Surgical dressings are clean and dry.) Abdomen: Present: Soft, Non-tender Skin: Present: No rashes noted on visualized skin - VTE Documentation of Mechanical Device: Intermittent pneumatic compression device Results 10/16/17 04:53 10/16/17 04:53 Lab Results, Last 24 hours 10/16/17 10/16/17 10/16/17 04:53 04:53 16:36 WBC 10.4 Hgb 8.6 L D Hct 26.3 L Plt Count 196 Sodium 137 Potassium 4.0 Chloride 107 Carbon Dioxide 24 BUN 5 L Creatinine 0.67 L Glucose 114 H Calcium 7.8 L Magnesium 1.4 L Consult Discharge Plan - Plan Referrals: Barb Robbins CNP [Advanced Practice Nurse] - 10/21/17 2:00 pm Bro Lozano MD [Partnered Physician] - 11/04/17 10:00 am
[2017-10-17] MEDS: *HR* Morphine 2 MG/ML SYRINGE IVP PRN ×2 (00:39→08:41)
[2017-10-17 04:55] LABS: BUN/Creatinine Ratio 6 (6-26); Calcium 8.1 mg/dL (8.6-10.8); Carbon Dioxide 25 mEq/L (19-29); Chloride 106 mEq/L (98-109); Glucose 108 mg/dL (70-99); Hematocrit 27.4 % (37.5-50.1); Magnesium 1.6 mg/dL (1.6-2.6); Mean Corpuscular HGB Conc 32.8 g/dL (31.6-35.5); Mean Corpuscular Hemoglobin 28.9 pg (28.0-33.3); Mean Corpuscular Volume 88.1 fL (83.0-100.0); Mean Platelet Volume 9.5 fL (9.4-12.4); Osmolality,Calculated 281 (280-300); Platelet Count 207 K/mcL (140-400); Potassium 3.8 mEq/L (3.5-4.5); Red Blood Count 3.11 M/mcL (4.19-5.50); Red Cell Distribution Width 14.2 % (11.5-14.5); Sodium 137 mEq/L (136-145); eGFR For African Americans > 60 (> 60); eGFR For Non-African Americans > 60 (> 60)
[2017-10-17 04:56] LABS: Blood Urea Nitrogen 4 mg/dL (8-26)
[2017-10-17] MEDS: *HR* HYDROcodone/Acet 5/325 mg TABLET PO PRN ×2 (05:58→14:49)
[2017-10-17] MEDS: Lisinopril 20 MG TABLET PO SCH (08:33)
--- NOTE | 2017-10-17 11:58 | Vascular/[facility] Progress Note ---
Date of Encounter: 10/17/17 Time of Encounter: 11:56 - Assessment and plan (1) Acute blood loss anemia Current Visit: Yes Status: Acute Patient had hemoglobin approximately 8.5 with hypotension. Due to the need to optimize hemodynamics and improved perfusion to a very ischemic right lower extremity 1 unit of blood was transfused. On postoperative day #2 the patient's hemoglobin is stable at 9.0. The patient' s blood pressure is also stable. (2) PAD (peripheral artery disease) Current Visit: No Status: Chronic Patient has severe ischemia to the right lower extremity. Despite a redo thrombectomy of the right femoral-popliteal bypass graft and endarterectomies with patch angioplasties of the qqebm-vzf-eaqd popliteal and tibial peroneal trunk the patient's perfusion remains marginal at best. The patient will be restarted on his Coumadin. Overall prognosis for the right lower extremity remains very poor. Patient has no overall change to the right foot. Will initiate physical therapy to prepare patient for discharge to home. The patient does not have any further surgical revascularization options. 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 - Subjective Interval history: Mr. Garcia is a 62-year-old white male who had undergone an extensive attempt at revascularization of the right lower extremity yesterday. He was noted overnight to have some degree of hypotension with systolics in the mid 80s which is unusual for him. In addition he had some arrhythmias with bigeminy and a short run of V. tach this afternoon. He was asymptomatic from this process. In addition he complains of headache pain, throat pain, and pain in his right lower extremity along the incision line. He also notes decreased sensation in his right foot area On postoperative day #2 the patient is feeling better. His headache and throat discomfort has significantly improved and he was able to eat BREAKFAST. The patient needed a straight catheter last night for urinary retention. This is also resolved and he has urinated spontaneously without difficulty today. Vital Signs, Last 4 Hours Temp Pulse Resp BP Pulse Ox 10/17/17 11:16 98.5 F 67 16 108/59 100 10/17/17 08:45 70 - Physical Examination General: Present: Conversant HEENT: Present: Atraumatic Cardiac: Present: Reg Rate and Rhythm, Normal S1 and S2, No Murmur Lungs: Present: Normal Breath Sounds Neuro: Present: Alert and responsive, Cranial nerves grossly intact Vascular: Present: Pulse, absent, Edema, Color/Temperature (Patient has discoloration of the forefoot as preoperatively with a ruborous change and persistent deep hyperpigmentation of the forefoot and toes. The perfusion to the right foot remains marginal. ), Surgical incisions (Surgical dressings were removed from the groin and calf. The right calf is soft. There are no signs of hematoma.) Abdomen: Present: Soft, Non-tender - VTE Documentation of Mechanical Device: Graduated compression elastic hosiery Results 10/17/17 04:02 10/17/17 04:02 Lab Results, Last 24 hours 10/16/17 10/17/17 10/17/17 16:36 04:02 04:02 WBC 8.4 Hgb 9.0 L Hct 27.4 L Plt Count 207 Sodium 137 Potassium 3.8 Chloride 106 Carbon Dioxide 25 BUN 4 L Creatinine 0.64 L Glucose 108 H Calcium 8.1 L Magnesium 1.4 L 1.6 Consult Discharge Plan - Plan Referrals: Barb Robbins CNP [Advanced Practice Nurse] - 10/21/17 2:00 pm Bro Lozano MD [Partnered Physician] - 11/04/17 10:00 am
--- NOTE | 2017-10-17 12:04 | Discharge Summary ---
Date of Encounter: 10/17/17 Time of Encounter: 16:55 - Discharge Diagnosis (1) Acute blood loss anemia Priority: Secondary Status: Acute Comments: Patient required 1 unit of transfusion of packed red blood cells due to perioperative blood loss. (2) PAD (peripheral artery disease) Priority: Primary Status: Chronic Comments: Patient has severe right lower extremity occlusive disease primarily in the tibial and pedal circulation. He is status post an extensive revascularization and thrombectomy. He has no further surgical options for revascularization. The patient will be continued on antiplatelet therapy and anticoagulation with Coumadin. - Discharge Medications Prescriptions: HYDROcodone/Acet 5/325 mg [[place] 5-325 mg] 1 tab PO Q6HR PRN #14 tablet PRN Reason: Moderate Pain Home Medications: Clopidogrel Bisulfate [Plavix] 75 mg PO DAILY #30 tablet 09/02/15 [Rx] Lisinopril [Zestril] 40 mg PO DAILY 10/15/17 [History] HYDROcodone/Acet 5/325 mg [[place] 5-325 mg] 1 tab PO Q6HR PRN #14 tablet [Rx] Warfarin [Coumadin] 5 mg PO QPM #30 10/17/17 [Rx] Allergies/Adverse Reactions: 3 Allergy/AdvReac Type Severity Reaction Status Date / Time No Known Allergies Allergy Verified 10/15/17 12:24 Procedures/tests Complete & Pending: Procedures Performed prior 72 hours Category Date Time Status EKG [ECG 12 lead ECG] [ECG] Stat Y 10/15/17 23:02 Completed Date of admission: 10/15/17 23:37 Primary care physician: Marissa Monroe CNP Consults: 10/17/17 11:55 Consult to Physical Therapy [CONS] Routine Comment: Evaluate, develop and implement POC Reason for Consult: Status post redo right lower extremity revascularization. Patient has decreased range of motion exercise tolerance. Needs assistance for ambulation and return to activities of daily living. Procedure(s) Performed: Repeat redo right femoral-popliteal bypass graft thrombectomy, below-knee popliteal artery endarterectomy with bovine pericardial patch angioplasty, and right tibial peroneal trunk endarterectomy and patch angioplasty. Discharging clinician: Bro Lozano Anticipated date of discharge: 10/17/17 - Patient Status Disposition: Home, Self-Care Condition: Fair Functional capacity at discharge: uses cane/walker Overall status at discharge: patient is progressing back to baseline - Discharge Instructions Instructions: Peripheral Vascular Disorders (DC) Follow Up With: Barb Robbins CNP [Advanced Practice Nurse] - 10/21/17 2:00 pm Bro Lozano MD [Partnered Physician] - 11/04/17 10:00 am Additional Instructions: Keep surgical incisions dry for total 5 days following surgery. No lifting greater than 10 pounds. No automobile driving. No manual labor. Physical therapy as outpatient in [place]. Use walker as necessary for ambulation assistance. - Diet and Activity Activity: ambulate only with your walker, as per physical therapy Diet: advance to your usual diet - Hospital Course Hospital course: Mr. Garcia is a 62 year old male With recurrent ischemia of right lower extremity. He had gone on to re- thrombose his right femoral to below the knee popliteal artery bypass graft. He has had 3-4 previous interventions in an attempt to revascularize her right lower extremity with only limited success and durability. He was placed on antiplatelet and anticoagulation medication in an attempt to try to promote graft patency but this has been now unsuccessful. The patient was taken to the operating room on 10/15/2017 for repeat thrombectomy of the right lower extremity bypass graft. He also had runoff endarterectomies of the distal below- the-knee popliteal artery and also at the tibial peroneal trunk with patch angioplasties. This was performed in an attempt to try to decrease the resistance and to promote flow into a very diseased and limited tibial and pedal artery system. The patient was seen by physical therapy postoperatively. They recommended home physical therapy and a walker. These were prescribed for the patient upon discharge. - Time Spent with Patient Total time spent providing and/or coordinating discharge services: Exam Vital Signs, Last 4 Hours Temp Pulse Resp BP Pulse Ox 10/17/17 11:16 98.5 F 67 16 108/59 100 10/17/17 08:45 70 General: Present: Conversant, No Apparent Distress HEENT: Present: Atraumatic, Normocephaly Cardiac: Present: Reg Rate and Rhythm, Normal S1 and S2 Lungs: Present: Normal Breath Sounds Neuro: Present: Alert and responsive, No focal deficits noted Abdomen: Present: Soft, Non-tender - VTE Documentation of Mechanical Device: Graduated compression elastic hosiery
[2017-10-17 13:45] LABS: Magnesium 1.9 mg/dL (1.6-2.6); Potassium 3.9 mEq/L (3.5-4.5)
[2017-10-17 16:15] VITALS: BP 115/63
--- NOTE | 2017-10-18 15:56 | Electrocardiograph Report ---
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
== END 2017-10-17 18:37 | disposition home or self-care (01) | DRG 253 ==
LOC: SAMDAY 11:38 → 2NNU 23:37
PROVIDERS: ADMIT Surgery Vascular Surgery; ATTEND Surgery Vascular Surgery

== ENCOUNTER 2018-02-18 11:50 | Inpatient (IN) ==
[2018-02-18] MEDS ORDERED: CeFAZolin Syr 2,000MG/20 ML 2,000 MG/20 ML SYRINGE IVPB ONE (12:17)
[2018-02-18] MEDS ORDERED: Albuterol 2.5 MG/3 ML NEBULIZER IH ONE (12:33)
[2018-02-18] MEDS ORDERED: Albuterol 2.5 MG/3 ML NEBULIZER ONE (12:35)
[2018-02-18] MEDS ORDERED: Ringers Solution, Lactated 1,000 ML IVC SCH (12:45)
--- NOTE | 2018-02-18 13:40 | Anesthesia Evaluation PreOp ---
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: Denies Any Significant HX Other Medical History: Denies Any Significant HX Anesthesia History: No Prior Anesthetic Complications, Past Anesthesia Alcohol Use: none Drug use: none Medications and Allergies Clopidogrel Bisulfate [Plavix] 75 mg PO DAILY #30 tablet 09/02/15 [Rx] Lisinopril [Zestril] 40 mg PO DAILY 10/15/17 [History] Warfarin [Coumadin] 5 mg PO QPM #30 10/17/17 [Rx] 3 Allergy/AdvReac Type Severity Reaction Status Date / Time No Known Allergies Allergy Verified 02/18/18 12:34 - Meds/Allergy Pre-op Review Medications Reviewed: Yes Allergies Reviewed: Yes Beta Blockers on Current Med List: No Anesthesia Results - Labs Laboratory Tests 01/31/18 01/31/18 02/12/18 14:02 14:02 07:03 WBC 9.8 Hgb 13.6 Hct 41.9 Plt Count 274 PT 13.7 H INR 1.3 Sodium 137 Potassium 3.9 BUN 7 L Creatinine 0.83 - Imaging EKG: report reviewed (01/31/2018 SINUS RHYTHM WITH OCCASIONAL SUPRAVENTRICULAR PREMATURE COMPLEXES) Anesthesia Exam O2 Sat Height 1.78 m Height 1.78 m Height 1.78 m Weight 72.121 kg Weight 72.121 kg Weight 72.121 kg O2 Sat by Pulse Oximetry 100 O2 Sat by Pulse Oximetry 100 Vital Signs Temp Pulse Resp BP Pulse Ox 98.3 F 86 18 129/74 100 02/18/18 12:17 02/18/18 12:17 02/18/18 12:17 02/18/18 12:17 02/18/18 12:17 Height: 5'10" Weight: 159 lbs NPO (# of Hours): 8 Pain Scale: 8 (right foot) Pain Scale Used: Numeric (1 - 10) - HEENT Pupil (Motor): EOMI Mallampati: II Teeth: Missing, Poor dentition Oral Opening: Greater than 3 - DUST CONTROL ENGINEER LOC: Oriented DUST CONTROL ENGINEER Motor: Normal RUE, Normal LUE, Normal RLE, Normal LLE, Normal Face DUST CONTROL ENGINEER Sensory: Normal: RUE, LUE, RLE, LLE, Face - Cardiac Rhythm: Regular Murmur: None - Pulmonary Breath Sounds: bilateral Clear Respiratory Effort: Symmetrical Anesthesia Assess/Plan ASA Score: 3 Modified [place] Scale for Level of Consciousness: Cooperative, oriented, and tranquil Anesthetic Plan: General Monitoring Plan: Standard Monitors Recovery Plan: PACU
--- NOTE | 2018-02-18 17:40 | History & Physical Report ---
Date of Encounter: 02/18/18 Time of Encounter: 17:40 24 Hour HP Update - Instructions Instructions: If the History and Physical is less than 30 days old and was completed prior to A.M. admission and or procedure and has NOT been updated on calendar day of procedure please complete this update prior to performing procedure. - Update Patient reports changes in Medical Condition: No Changes in examination, assessment, or condition: No Changes in Medication: No Preop tests/diagnostics Reviewed: Yes Surgery Remains Indicated: Yes Consent for Planned Operative Procedure(s) Verified: Yes - Pre-Operative Checklist Preoperative Checklist Indicated: Yes Prophylactic Antibiotic Ordered: Yes Home Medications Include Beta Yadira: No Beta Yadira Taken Today (Day of Surgery): No Beta Yadira Taken Yesterday (Day Prior to Surgery): No Is VTE Prophylaxis Indicated?: Yes
[2018-02-18] MEDS ORDERED: *HR* Midazolam HCl 2 MG/2 ML VIAL ONE (17:51)
[2018-02-18] MEDS ORDERED: *HR* FentaNYL (PF) 100 MCG/2 ML VIAL ONE ×2 (17:51→19:52)
[2018-02-18] MEDS ORDERED: *HR* Propofol 200 MG/20 ML VIAL IVP ONE (17:51)
[2018-02-18] MEDS ORDERED: Acetaminophen IV 1,000 MG/100 ML INFUS..BTL ONE (17:53)
[2018-02-18] MEDS: Pregabalin 50 MG CAPSULE ONE ×2 (17:57→17:58)
[2018-02-18] MEDS ORDERED: Dexamethasone 4 MG/ML VIAL ONE (18:15)
[2018-02-18] MEDS ORDERED: *HR* PHENYLEPHRINE 1,000 MCG/10 ML SYRINGE IVP ONE ×2 (18:19→19:23)
[2018-02-18] MEDS ORDERED: EPHEDrine 50 MG/ML VIAL ONE (18:32)
[2018-02-18] MEDS ORDERED: *HR* Promethazine 25 MG/ML VIAL IVP PRN (18:42)
[2018-02-18] MEDS ORDERED: *HR* OxyCODONE Immed Rel 5 MG TABLET PO PRN (18:42)
[2018-02-18] MEDS ORDERED: Ondansetron 4 MG/2 ML VIAL ONE (19:31)
[2018-02-18] MEDS ORDERED: Ketorolac 30 MG/ML VIAL ONE (19:50)
--- NOTE | 2018-02-18 20:09 | Operative Note ---
Date of procedure: 02/18/18 Pre-op diagnosis: recurrent ischemia of right lower extremity Post-op diagnosis: same Procedure: right above knee amputation Complications: none Anesthesia: GETA Surgeon: Bro Lozano Was there an campaign assistant present: No Estimated blood loss (cc): 250 Specimen: right AKA Condition: stable Disposition: PACU Procedure in Detail: History Maximino nascimento is a 62-year-old white male who has had a long history of bilateral lower extremity vascular occlusive disease. He has had recurrent problems in particular for the right lower extremity. He has had numerous procedures including bypass grafts and thrombectomies. The patient had reocclusion of his graft and noninvasive study showed minimal blood flow in the distal right lower extremity. He recently had an angiogram which confirmed the findings of occluded grafts and endarterectomy sites. He had minimal distal perfusion with a reconstituted distal posterior tibial artery. He also had a stenotic profunda femoris artery which was angioplastied. At the time of the angiogram a thorough discussion was had with the patient in regards to his clinical status and prognosis. He decided upon amputation because of his persistent pain and recurrent vascular failures. The patient comes for that operation. Procedure After informed consent was obtained the patient was taken to the operating room. General endotracheal anesthesia was established. The right lower extremity was sterilely prepped and draped. A timeout protocol was observed. A fishmouth type incision was made on the distal thigh. Dissection was carried down to and through the muscular compartments. The synthetic graft was identified and ligated. It was resected proximally so that it would not be involved in the wound itself. The superficial femoral artery was densely calcified and chronically occluded. The superficial femoral vein was soft and patent. The periosteum was then raised on the femur. The periosteum was retracted and then a sagittal saw was used to divide the femur. The edges of the femur was then rasped smooth. The wound was copiously irrigated with antibiotic containing solution. Hemostasis was achieved. Amputation site was then closed using interrupted Vicryl sutures. Cristo were used for the skin. Xeroform dressing and gauze were applied around the wound and this was secured with a Kerlix roll and Robin wraps. The patient was extubated in the operating room. He was taken to the recovery room in stable condition. There were no intraoperative complications. All tissue at the level of the amputation above the knee appeared viable. The smaller vessels were actually pulsatile.
[2018-02-18] MEDS: MORPHINE SUL Oral CONC 10 MG/0.5 ML ORAL.SYG SL PRN ×2 (20:29→20:34)
--- NOTE | 2018-02-18 20:53 | Anesthesia Evaluation Post Op ---
Date of Encounter: 02/18/18 Time of Encounter: 20:52 - Vital Signs Vital Signs: Last Vital Signs Temp 98.8 F 02/18/18 20:44 Pulse 81 02/18/18 20:44 Resp 18 02/18/18 20:44 BP 103/69 02/18/18 20:44 Pulse Ox 96 02/18/18 20:44 - Lungs Lungs: Clear Ascult./Percussion - Airway Airway: Non-obstructed - Cardiovascular Regular Rate - Mental Status Mental Status: Alert & Oriented, Answers Appropriately - Pain Pain Scale: 10 (tolerable per patient) - Nausea Vomiting Nausea Vomiting: Not Present - Hydration Hydration: Ice chips, Walker catheter - Discharge PostOp Status: Transfer Patient to floor
[2018-02-18] MEDS ORDERED: Ondansetron 4 MG/2 ML VIAL IVP PRN (20:56)
[2018-02-18] MEDS: *HR* Morphine 2 MG/ML SYRINGE IVP PRN ×2 (21:03→23:19)
[2018-02-18] MEDS: ceFAZolin 2,000 MG in D5% in Water 100 ML IVPB SCH (23:13)
[2018-02-19] MEDS: *HR* Morphine 2 MG/ML SYRINGE IVP PRN ×2 (03:40→08:49)
[2018-02-19 04:28] LABS: Basophils % 0.2 %; Eosinophils % 0.1 %; Hematocrit 31.7 % (37.5-50.1); Hemoglobin 10.6 g/dL (12.9-16.9); Immature Granulocytes % 0.8 % (0-4); Lymphocytes # 0.9 K/mcL (0.6-4.6); Lymphocytes % 6.6 %; Mean Corpuscular HGB Conc 33.4 g/dL (31.6-35.5); Mean Corpuscular Hemoglobin 28.7 pg (28.0-33.3); Mean Corpuscular Volume 85.9 fL (83.0-100.0); Mean Platelet Volume 9.5 fL (9.4-12.4); Monocytes # 0.8 K/mcL (0.0-1.3); Monocytes % 5.9 %; Neutrophils # 11.3 K/mcL (1.6-8.9); Platelet Count 265 K/mcL (140-400); Red Blood Count 3.69 M/mcL (4.19-5.50); Red Cell Distribution Width 14.9 % (11.5-14.5); Segmented Neutrophils % 86.4 %
[2018-02-19 04:46] LABS: BUN/Creatinine Ratio 12 (6-26); Blood Urea Nitrogen 12 mg/dL (8-23); Calcium 8.5 mg/dL (8.6-10.3); Carbon Dioxide 23 mEq/L (23-29); Chloride 108 mEq/L (98-107); Glucose 155 mg/dL (70-105); Osmolality,Calculated 287 (280-300); Potassium 4.4 mEq/L (3.5-5.1); Sodium 137 mEq/L (136-145); eGFR For African Americans > 60 (> 60); eGFR For Non-African Americans > 60 (> 60)
[2018-02-19] MEDS ORDERED: Ringers Solution, Lactated 500 ML IVC ONE (08:11)
[2018-02-19] MEDS ORDERED: Ringers Solution, Lactated 1,000 ML ONE (08:15)
[2018-02-19] MEDS: ceFAZolin 2,000 MG in D5% in Water 100 ML IVPB SCH ×2 (08:17→15:55)
[2018-02-19] MEDS: Lisinopril 20 MG TABLET PO SCH (08:18)
[2018-02-19] MEDS ORDERED: Ringers Solution, Lactated 1,000 ML IVC ONE (08:45)
--- NOTE | 2018-02-19 08:57 | Vascular/[facility] Progress Note ---
Date of Encounter: 02/19/18 Time of Encounter: 08:05 - Assessment and plan (1) PAD (peripheral artery disease) Current Visit: No Status: Chronic Patient is status post day #1 of right [id number] amputation. Patient is well controlled with present pain medication. We'll initiate consultative therapy with social work program coordinator, occupational therapy, and physical therapy. Once appropriate arrangements and consultations have been obtained I anticipate patient may be transferred to a inpatient rehabilitation facility in 1-2 days. This plan was reviewed with the patient. He agrees. (2) HTN (hypertension) Current Visit: No Status: Chronic Patient under medical treatment for hypertension Of note the patient has actually been mildly hypotensive overnight. He also has low urinary output so he will receive intravenous fluid boluses this morning. Qualifiers: Hypertension type: essential hypertension Qualified Code(s): I10 - Essential (primary) hypertension - Subjective Interval history: Patient is postoperative day #1 following right [id number] amputation. He had an uneventful night. His pain is well controlled. He is in no distress. Vital Signs, Last 4 Hours Temp Pulse Resp BP Pulse Ox 02/19/18 08:31 95 02/19/18 08:00 66 16 92/47 95 02/19/18 07:33 98.4 F 62 15 100/44 94 02/19/18 07:00 80 16 90/58 93 - Physical Examination General: Present: Conversant, No Apparent Distress HEENT: Present: Atraumatic Neck: Absent: JVD Neuro: Present: Alert and responsive, No focal deficits noted, Motor nerves grossly intact, Sensory nerves grossly intact Vascular: Present: Amputation(s) (Dressing to right AKA is intact. The patient does have staining indicate oozing from the surgical site overnight.) - VTE Documentation of Mechanical Device: Intermittent pneumatic compression device Results 02/19/18 03:56 02/19/18 03:56 Lab Results, Last 24 hours 02/19/18 02/19/18 03:56 03:56 WBC 13.1 H Hgb 10.6 L Hct 31.7 L Plt Count 265 Sodium 137 Potassium 4.4 Chloride 108 H Carbon Dioxide 23 BUN 12 Creatinine 1.01 Glucose 155 H Calcium 8.5 L Consult Discharge Plan - Plan Referrals: Marissa Monroe, [employer] [Primary Care Provider] - 03/05/18 7:15 am (arrive at 0700 am to see Marissa Monroe) Bro Lozano MD [Partnered Physician] - 04/02/18 9:45 am
--- NOTE | 2018-02-19 09:00 | Physician Discharge Referral ---
ExtendedCare Referral Info Transfer To: ECF/Rehab Provider in Charge: Dr Lozano Provider in Charge after Transfer: PCP Institutional Level of Care: Skilled - Diagnosis (1) PAD (peripheral artery disease) Priority: Primary Status: Chronic (2) HTN (hypertension) Priority: Secondary Status: Chronic Expected Duration of Placement: 1-3 weeks Prognosis: Good Aware of Diagnosis: Patient, Family Aware of Prognosis: Patient, Family - Transfer Medications Home Medications: Clopidogrel Bisulfate [Plavix] 75 mg PO DAILY #30 tablet 09/02/15 [Rx] Lisinopril [Zestril] 40 mg PO DAILY 10/15/17 [History] Allergies/Adverse Reactions: 3 Allergy/AdvReac Type Severity Reaction Status Date / Time No Known Allergies Allergy Verified 02/18/18 12:34 - Respiratory Orders Smoking Cessation: Smoking cessation has been advised. For more information, call the [employer] Quit Line at 9-234-GAFZ-NOW. - Ancillary Orders May use pressure relief devices daily prn, May go on GILBERTO w/family/respon constitution party w /meds at nurse discretion PRN, May consult with Dentist, Senior Applications Developer, Automotive Parts Person PRN - Advance Directives Code Status: Full Code - Mobility Orders Other (As per physical therapy) - Rehabiliation Orders Rehab Potential: Good Rehab Orders: ROM Exercises - Treatments Skin tear care topically daily PRN per policy List/Other: Daily dry to dry dressings to right fakne-wnb-loly amputation site with dry gauze and Robin wraps. - Diet Orders Regular CERTIFICATION: I certify that the transfer of the above named patient to an Extended Care Facility is necessary for the continuing treatment of the diagnosis listed. The above information is true and accurate reflection of patient's current condition. Confidential - Redisclosure prohibited without a patient's written consent.
[2018-02-19] MEDS: *HR* HYDROcodone/Acet 5/325 mg TABLET PO PRN ×3 (12:05→20:19)
[2018-02-20] MEDS: *HR* HYDROcodone/Acet 5/325 mg TABLET PO PRN ×3 (01:45→11:07)
[2018-02-20] MEDS: Lisinopril 20 MG TABLET PO SCH (08:03)
--- NOTE | 2018-02-20 11:00 | Discharge Summary ---
Orders not resulted at time of discharge: Pending orders 02/18/18 19:15 Surgical Pathology [PTH] Routine Date of Encounter: 02/20/18 Time of Encounter: 10:58 - Discharge Diagnosis (1) PAD (peripheral artery disease) Priority: Primary Status: Chronic Comments: Severe and recurrent right lower extremity occlusive disease. (2) HTN (hypertension) Priority: Secondary Status: Chronic Comments: Patient under medical treatment Qualifiers: Hypertension type: essential hypertension Qualified Code(s): I10 - Essential (primary) hypertension - Hospital Course Hospital course: Mr. Garcia is a 62 year old male With severe known bilateral lower extremity occlusive disease. Patient undergone antrum last week. He was found to have non-reconstructable lesion. The patient was recommended to undergo amputation and he was admitted for this procedure. The patient was performed without difficulty under general endotracheal anesthesia. The patient was felt fit for discharge on postoperative day #2. Patient will be sent to the [facility] for inpatient rehabilitation. - Time Spent with Patient Total time spent providing and/or coordinating discharge services: - Discharge Medications Prescriptions: HYDROcodone/Acet 5/325 mg [[place] 5-325 mg] 1 tab PO Q4HR PRN 10 Days #20 tablet PRN Reason: Moderate Pain Home Medications: Clopidogrel Bisulfate [Plavix] 75 mg PO DAILY #30 tablet 09/02/15 [Rx] Lisinopril [Zestril] 40 mg PO DAILY 10/15/17 [History] HYDROcodone/Acet 5/325 mg [[place] 5-325 mg] 1 tab PO Q4HR PRN 10 Days #20 tablet 02/20/18 [Rx] Allergies/Adverse Reactions: 3 Allergy/AdvReac Type Severity Reaction Status Date / Time No Known Allergies Allergy Verified 02/18/18 12:34 Date of admission: 02/18/18 20:08 Primary care physician: Marissa Monroe CNP Consults: 02/18/18 20:56 Consult to Physical Therapy [CONS] Routine Comment: Evaluate, develop and implement POC Reason for Consult: s/p right AKA Does patient have active BEDREST order?: No Is patient medically & hemodynamically stable?: Yes Consult to Medical Surgical Tech [CONS] Routine Reason for SW Consult: post op amputation 02/18/18 21:18 Consult to Occupational Therapy [CONS] Routine Comment: Evaluate, develop and implement POC Reason for Consult: s/p right aka ---- pt for in pt rehab at discharge Does patient have active BEDREST order?: No Is patient medically & hemodynamically stable?: Yes Patient assessed for mobility or mobilized this visit?: Yes Procedure(s) Performed: Right above-knee amputation Discharging clinician: Bro Lozano Anticipated date of discharge: 02/20/18 Exam Vital Signs, Last 4 Hours Temp Pulse Resp BP Pulse Ox 02/20/18 08:00 77 96 02/20/18 07:06 98.0 F 63 17 108/65 96 General: Present: Conversant, No Apparent Distress Vascular: Present: Amputation(s) (Right owmrr-pvy-iiyk amputation site dressing was removed on postoperative day #2. Staple line was intact. The flaps were viable. There is no signs of ischemia.) - Patient Status Disposition: Transfer Inpatient Rehab Fac Condition: Good Functional capacity at discharge: wheelchair bound Overall status at discharge: patient is progressing back to baseline - Discharge Instructions Follow Up With: Marissa Monroe CNP [Primary Care Provider] - () Bro Lozano MD [Partnered Physician] - 04/02/18 9:45 am Additional Instructions: Daily dressing changes to right evjcf-vjz-oyhr amputation. This should be with Adaptic, Kerlix roll, and Robin wrap. - Diet and Activity Activity: as per physical therapy - VTE Documentation of Mechanical Device: Intermittent pneumatic compression device
[2018-02-20 11:29] VITALS: BP 119/82
== END 2018-02-20 12:46 | DRG 240 ==
LOC: SAMDAY 11:50 → 2NNU 20:08
PROVIDERS: ADMIT Surgery Vascular Surgery; ATTEND Surgery Vascular Surgery